=== PATIENT | female | born 1975 | race Caucasian/White ===

== ENCOUNTER 2018-12-01 10:33 | Day surgery (SDC) | payer MEDICAID ==
[2018-11-26 12:03] VITALS: BMI 30.1
[2018-12-01 11:16] LABS: BASO # 0.01 K/mm3 (0.0-2.0); BASO % 0.3 % (0.0-3.0); EOS # 0.1 (0.0-0.7); GRAN # 1.46 (1.4-6.5); GRAN % 42.4 % (50.0-68.0); HEMOGLOBIN 11.5 g/dL (12.0-16.0); LYMPH # 1.7 (1.2-3.4); LYMPH % 50.4 % (22.0-35.0); MEAN CELL VOLUME 77.2 fl (80.0-105.0); MEAN CORPUSCULAR HGB CONC 32.4 g/dl (31.0-37.0); MEAN PLATELET VOLUME 10.3 fl (7.0-11.0); MONO # 0.2 (0.1-0.6); MONO % 4.9 % (1.0-6.0); RBC 4.6 10^6/uL (3.5-6.1); WHITE BLOOD COUNT 3.5 10^3/uL (4.5-11.0)
[2018-12-01 11:25] LABS: BLOOD UREA NITROGEN 11 mg/dL (7-21); CALCIUM 9.2 mg/dL (8.4-10.5); GFR NON-AFRICAN AMERICAN > 60
[2018-12-01 11:31] LABS: INR 1.05; PARTIAL THROMBOPLASTIN TIME 32.6 Seconds (26.9-38.3); PROTHROMBIN TIME 11.9 SECONDS (9.4-12.5)
[2018-12-01] MEDS ORDERED: Midazolam 2 MG/2 ML VIAL ONE (12:21)
[2018-12-01] MEDS ORDERED: Midazolam 2 MG/2 ML VIAL IVP ONE (12:45)
[2018-12-01] MEDS ORDERED: Oxycodone/Acetaminophen 5/325 mg Tab PO PRN (12:57)
[2018-12-01] MEDS ORDERED: Sodium Chloride 0.45% 1,000 ML IV SCH (13:00)
[2018-12-01 13:31] VITALS: O2SAT 100
--- NOTE | 2018-12-01 13:44 | US ---
PROCEDURE: Ultrasound-guided left thyroid fine needle aspiration biopsy. CLINICAL HISTORY: Previous right thyroidectomy. Dominant 2.5 cm left thyroid nodule. Evaluate for malignancy PHYSICIAN(S): Richard Handley M.D. TECHNIQUE: The relative risks and indications for the procedure were explained to the patient and her daughter and consent obtained. The patient was placed supine on the stretcher with the neck extended and preliminary sonography of the thyroid performed. This reveal dominant 2.5 cm heterogeneous nodule in the left thyroid. A smaller 1 cm nodule is also seen. The neck was prepped and draped in the usual sterile fashion. Conscious sedation and monitoring were provided throughout the procedure by a nurse. 1% Xylocaine was used to anesthetize the skin and soft tissues at the access site. Three passes with a 22-gauge needle were performed under ultrasound guidance for fine needle aspiration of the 2.5 cm heterogeneous nodule left thyroid. IMPRESSION: 1. Ultrasound-guided fine needle aspiration of a 2.5 cm dominant left thyroid nodule 2. Previous right thyroidectomy.
[2018-12-01 13:56] VITALS: BP 105/63; PULSE 63; RESP 18; TEMP 97.5
== END 2018-12-01 15:10 | disposition home or self-care (01) ==
LOC: SDS 10:33
PROVIDERS: ATTEND Radiology Vascular & Interventional Radiology
DX: E04.1 Nontoxic single thyroid nodule (principal)
CPT/HCPCS: 10005; 36415; 80048; 84703; 85025; 85610; 85730; 88173; 88305; J2001; J2250; J2405; J3010; J7030